=== PATIENT | male | born 1990 | race Two or more races ===

== ENCOUNTER 2025-05-29 19:54 | Inpatient (IN) | payer OTHER ==
[~2025-05-29] VITALS: Ht 160 cm; Wt 64.9 kg
[2025-05-30] MEDS ORDERED: RINGERS SOLUTION,LACTATED 1,000 ML IV STA (00:05)
[2025-05-30 03:33] LABS: BASO % 0.5 % (0.1-1.2); EOS # 0.20 (0.04-0.54); EOS % 1.9 % (0.7-7.0); LYMPH # 1.64 (1.18-3.74); LYMPH % 15.5 % (19.3-53.1); MEAN PLATELET VOLUME 9.30 fl (9.4-12.4); MONO # 0.77 (0.24-0.82); MONO % 7.3 % (4.7-12.5); NEUT # 7.90 (1.56-6.13); NEUT % 74.5 % (34.0-71.1); RED CELL DISTRIBUTION WIDTH 14.0 % (11.6-14.4)
[2025-05-30 03:53] LABS: INR 1.1
[2025-05-30 03:57] LABS: ALT/SGPT 417.0 U/L (12-78); AST/SGOT 159.0 U/L (15-37); BILIRUBIN TOTAL 2.7 mg/dL (0.3-1.2); BUN CREA RATIO 18.0 (7.0-25.0); CREATININE SERUM 0.95 mg/dL (0.70-1.30); GFR 91.87; GLOBULINA 3.5 G/DL (2.4-3.5); GLUCOSE FASTING 73.0 mg/dL (65-100); OSMOLALITY SERUM 280.0 MOSM/KG (275-295)
[2025-05-30 04:13] LABS: BILIRUBIN,CONJUGATED 0.65 mg/dL (0.0-0.2)
[2025-05-30] MEDS ORDERED: PIPERACILLIN/TAZOBACTAM SODIUM 3.375 GM in DEXTROSE 5 % IN WATER 100 ML IV SCH (06:00)
[2025-05-30 08:08] LABS: URINE APPEARANCE Clear; URINE BILIRRUBIN Small (NEGATIVE); URINE BLOOD Small; URINE COLOR Dark Yellow; URINE GLUCOSE Negative (NEGATIVE); URINE LEUKOCYTE Negative; URINE NITRATE Negative; URINE PROTEIN Trace (NEGATIVE); URINE UROBILINOGEN 1.0 E.U./dl
[2025-05-30 08:10] LABS: URINE BACTERIA 9.5 uL (0.0-1933); URINE EPITHELIAL CELLS 6.4 uL (0.0-38.8); URINE RBC 30.7 uL (0.0-20.8); URINE WBC 3.6 uL (0.0-23.2)
[2025-05-30 08:12] LABS: URINE CAST 0.29 uL (0.0-1.40); URINE KETONE >=160 (NEGATIVE)
[2025-05-30] MEDS ORDERED: ONDANSETRON HCL 4 MG in 0.9 % SODIUM CHLORIDE 50 ML IV PRN (18:00)
[2025-05-30] MEDS ORDERED: ACETAMINOPHEN 500 MG GEL..CAP PO PRN (18:00)
[2025-05-30] MEDS ORDERED: 0.9 % SODIUM CHLORIDE 1,000 ML IV SCH (18:00)
[2025-05-30] MEDS ORDERED: MORPHINE SULFATE 4 MG/ML CARTRIDGE IV PRN (18:15)
[2025-05-30 21:44] LABS: COVID-19 AG NEGATIVE (NEGATIVE)
[2025-05-30 21:45] VITALS: BP 120/70; O2SAT 97
[2025-05-31 01:56] VITALS: BP 103/64; O2SAT 98
[2025-05-31 08:00] VITALS: BP 110/68; O2SAT 99
[2025-05-31] MEDS ORDERED: FAMOTIDINE/PF 20 MG in 0.9 % SODIUM CHLORIDE 8 ML IV PUSH SCH (09:00)
[2025-05-31 17:53] VITALS: BP 135/86
[2025-05-31 19:28] LABS: ALT/SGPT 225.0 U/L (12-78); AST/SGOT 62.0 U/L (15-37); BILIRUBIN TOTAL 1.71 mg/dL (0.3-1.2); BILIRUBIN,CONJUGATED 0.64 mg/dL (0.0-0.2); BUN CREA RATIO 8.0 (7.0-25.0); CREATININE SERUM 0.77 mg/dL (0.70-1.30); GFR 117.08; GLOBULINA 3.5 G/DL (2.4-3.5); GLUCOSE FASTING 61.0 mg/dL (65-100); OSMOLALITY SERUM 271.0 MOSM/KG (275-295)
[2025-06-01 02:04] VITALS: BP 97/68; O2SAT 97
[2025-06-01 09:02] VITALS: BP 103/55; O2SAT 98
[2025-06-01] MEDS ORDERED: BUPIVACAINE HCL/MPF 0.5% 30ML VIAL ONE (10:56)
[2025-06-01] MEDS ORDERED: LIDOCAINE HCL 1%/EPINEPHRINE 20ML VIAL IJ ONE (10:56)
[2025-06-01] MEDS ORDERED: SUGAMMADEX SODIUM 200 MG/2 ML VIAL IV ONE (12:54)
[2025-06-01] MEDS ORDERED: MORPHINE SULFATE 4 MG/ML VIAL IV ONE (13:10)
[2025-06-01] MEDS ORDERED: PIPERACILLIN/TAZOBACTAM SODIUM 3.375 GM VIAL IV ONE (15:53)
[2025-06-01 18:46] VITALS: BP 142/92; O2SAT 97
[2025-06-01] MEDS ORDERED: MORPHINE SULFATE 4 MG/ML CARTRIDGE IV SCH (20:46)
[2025-06-02 03:14] VITALS: BP 123/76; O2SAT 97
[2025-06-02 09:11] VITALS: BP 120/72; O2SAT 95
[2025-06-02 16:38] VITALS: BP 134/84
[2025-06-03 02:31] VITALS: BP 122/81; O2SAT 95
[2025-06-03 08:41] VITALS: BP 114/73; O2SAT 96
== END 2025-06-03 15:23 | disposition home or self-care (01) | DRG 417 ==
LOC: ER 19:54 → MEDI 05-30 18:10
PROVIDERS: General Practice; Specialist; ADMIT Internal Medicine; ATTEND Internal Medicine
PROC: BW40ZZZ Ultrasonography of Abdomen (ICD-10-PCS; 2025-05-30)
PROC: BF37ZZZ Magnetic Resonance Imaging (MRI) of Pancreas (ICD-10-PCS; 2025-05-30)
PROC: 0FT44ZZ Resection of Gallbladder, Percutaneous Endoscopic Approach (ICD-10-PCS; principal; 2025-06-01 14:30)
DX: K81.0 Acute cholecystitis (principal); K85.10 Biliary acute pancreatitis without necrosis or infection

== ENCOUNTER 2025-08-28 20:18 | Emergency (ER) | payer OTHER ==
[~2025-08-28] VITALS: Ht 162.6 cm; Wt 69.9 kg
[2025-08-28 23:20] LABS: BASO % 0.2 % (0.1-1.2); EOS # 0.03 (0.04-0.54); EOS % 0.2 % (0.7-7.0); LYMPH # 1.10 (1.18-3.74); LYMPH % 7.3 % (19.3-53.1); MEAN PLATELET VOLUME 9.50 fl (9.4-12.4); MONO # 0.88 (0.24-0.82); MONO % 5.8 % (4.7-12.5); NEUT # 12.95 (1.56-6.13); NEUT % 86.0 % (34.0-71.1); RED CELL DISTRIBUTION WIDTH 13.5 % (11.6-14.4)
[2025-08-28 23:27] LABS: URINE APPEARANCE Clear; URINE BILIRRUBIN Small (NEGATIVE); URINE BLOOD Large; URINE COLOR Orange; URINE GLUCOSE Negative (NEGATIVE); URINE KETONE Trace (NEGATIVE); URINE LEUKOCYTE Trace; URINE NITRATE Negative; URINE UROBILINOGEN 1.0 E.U./dl
[2025-08-28 23:28] LABS: URINE BACTERIA 10.7 uL (0.0-1933); URINE EPITHELIAL CELLS 5.8 uL (0.0-38.8); URINE RBC 165.5 uL (0.0-20.8); URINE WBC 4.3 uL (0.0-23.2)
[2025-08-28 23:31] LABS: ALT/SGPT 153.0 U/L (12-78); AST/SGOT 159.0 U/L (15-37); BILIRUBIN TOTAL 1.47 mg/dL (0.3-1.2); BUN CREA RATIO 13.0 (7.0-25.0); CREATININE SERUM 1.21 mg/dL (0.70-1.30); GFR 69.49; GLOBULINA 4.5 G/DL (2.4-3.5); GLUCOSE FASTING 107.0 mg/dL (65-100); OSMOLALITY SERUM 275.0 MOSM/KG (275-295)
[2025-08-28 23:42] LABS: URINE CAST 0.43 uL (0.0-1.40); URINE PROTEIN 100 (NEGATIVE)
[2025-08-29] MEDS ORDERED: FAMOTIDINE/PF 20 MG/2 ML VIAL IV STA (00:14)
[2025-08-29] MEDS ORDERED: CEFTRIAXONE SODIUM 2,000 MG VIAL IV STA (00:14)
[2025-08-29] MEDS ORDERED: TAMSULOSIN HCL 0.4 MG CAP PO STA (00:15)
[2025-08-29] MEDS ORDERED: ONDANSETRON HCL 2 MG/ML VIAL IV ONE (00:15)
[2025-08-29] MEDS ORDERED: 0.9 % SODIUM CHLORIDE 1,000 ML IV SCH (00:15)
[2025-08-29] MEDS ORDERED: TAMSULOSIN HCL 0.4 MG CAP PO ONE (00:51)
[2025-08-29] MEDS ORDERED: ONDANSETRON HCL 2 MG/ML VIAL ONE (00:51)
[2025-08-29] MEDS ORDERED: CEFTRIAXONE SODIUM 2,000 MG VIAL ONE (00:52)
[2025-08-29] MEDS ORDERED: FAMOTIDINE/PF 20 MG/2 ML VIAL ONE (00:52)
[2025-08-29] MEDS ORDERED: CEPHALEXIN500 MG PO (04:38)
[2025-08-29] MEDS ORDERED: KETO10TA2 PO (04:38)
== END 2025-08-29 04:56 ==
LOC: ER 20:18
PROVIDERS: General Practice; Physician Assistant Medical
DX: R31.9 Hematuria, unspecified (principal)

== ENCOUNTER 2025-08-30 09:44 | Emergency (ER) | payer OTHER ==
[~2025-08-30] VITALS: Ht 162.6 cm; Wt 69.4 kg
[~2025-08-30 09:44] MED LIST: CEPHALEXIN500 MG PO; KETO10TA2 PO
[2025-08-30] MEDS ORDERED: 0.9 % SODIUM CHLORIDE 1,000 ML IV ONE (10:15)
[2025-08-30] MEDS ORDERED: FAMOTIDINE/PF 20 MG/2 ML VIAL IV ONE (10:15)
[2025-08-30] MEDS ORDERED: ONDANSETRON HCL 2 MG/ML VIAL IV ONE (10:15)
[2025-08-30] MEDS ORDERED: FAMOTIDINE/PF 20 MG/2 ML VIAL ONE (10:25)
[2025-08-30] MEDS ORDERED: ONDANSETRON HCL 2 MG/ML VIAL ONE (10:25)
[2025-08-30 11:11] LABS: BASO % 0.3 % (0.1-1.2); EOS # 0.01 (0.04-0.54); EOS % 0.1 % (0.7-7.0); LYMPH # 1.31 (1.18-3.74); LYMPH % 8.3 % (19.3-53.1); MEAN PLATELET VOLUME 9.20 fl (9.4-12.4); MONO # 1.03 (0.24-0.82); MONO % 6.6 % (4.7-12.5); NEUT # 13.19 (1.56-6.13); NEUT % 83.9 % (34.0-71.1); RED CELL DISTRIBUTION WIDTH 13.2 % (11.6-14.4)
[2025-08-30 11:51] LABS: URINE APPEARANCE Clear; URINE BILIRRUBIN Moderate (NEGATIVE); URINE BLOOD Large; URINE COLOR Dark Yellow; URINE GLUCOSE Negative (NEGATIVE); URINE LEUKOCYTE Trace; URINE NITRATE Negative; URINE UROBILINOGEN 1.0 E.U./dl
[2025-08-30 11:54] LABS: URINE BACTERIA 7.1 uL (0.0-1933); URINE EPITHELIAL CELLS 8.1 uL (0.0-38.8); URINE RBC 335.1 uL (0.0-20.8); URINE WBC 6.7 uL (0.0-23.2)
[2025-08-30 11:55] LABS: ALT/SGPT 226.0 U/L (12-78); AST/SGOT 211.0 U/L (15-37); BILIRUBIN TOTAL 2.33 mg/dL (0.3-1.2); BUN CREA RATIO 11.0 (7.0-25.0); CREATININE SERUM 0.99 mg/dL (0.70-1.30); GFR 87.6; GLOBULINA 5.2 G/DL (2.4-3.5); GLUCOSE FASTING 89.0 mg/dL (65-100); OSMOLALITY SERUM 273.0 MOSM/KG (275-295)
[2025-08-30 12:05] LABS: URINE CAST 0.87 uL (0.0-1.40); URINE KETONE >=160 (NEGATIVE); URINE PROTEIN 100 (NEGATIVE)
[2025-08-30 15:42] LABS: BILIRUBIN TOTAL 2.28 mg/dL (0.3-1.2); BILIRUBIN,CONJUGATED 1.14 mg/dL (0.0-0.2)
== END 2025-08-30 17:24 | disposition home or self-care (01) ==
LOC: ER 09:45
PROVIDERS: Emergency Medicine
DX: R11.10 Vomiting, unspecified (principal)

== ENCOUNTER 2025-09-07 10:10 | Outpatient (CLI) | payer OTHER | END 2025-09-07 10:18 | disposition home or self-care (01) | LOC: MRI 10:10 | DX: K80.61 Calculus of gallbladder and bile duct with cholecystitis, unspecified, with obstruction (principal) | CPT/HCPCS: 74181; 74183 ==

== ENCOUNTER 2025-09-13 21:10 | Inpatient (IN) | payer OTHER ==
[~2025-09-13] VITALS: Ht 162.6 cm; Wt 65.3 kg
[2025-09-13] MEDS ORDERED: ZOFRAN8 MG (23:00)
[2025-09-13] MEDS ORDERED: PEPCID AC20 MG (23:00)
[2025-09-13] MEDS ORDERED: CEPHALEXIN500 MG (23:00)
[2025-09-13] MEDS ORDERED: LEVOFLOXACIN750 MG (23:01)
--- NOTE | 2025-09-13 23:07 | NUR ---
SE RECIBE PACIENTE ALERTA Y ORIENTADO X 3 ESFERAS EL CUAL INDICA QUE LLEVA 3 SEMANAS CON FIEBRE, DOLOR DE CUERPO, GARGANTA Y CUERPO. PACIENTE INDICA QUE GREGORIO ESTADO BAJO TRATAMIENTO MEDICO MICHELLE NO GREGORIO MYRIAM. INDICA QUE LOS WBC CONTINUAN ELEVADOS.
[2025-09-14] MEDS ORDERED: KETOROLAC TROMETHAMINE 30 MG VIAL IV STA (01:20)
[2025-09-14] MEDS ORDERED: 0.9 % SODIUM CHLORIDE 1,000 ML IV ONE (01:30)
[2025-09-14 03:12] LABS: BASO % 0.3 % (0.1-1.2); EOS # 0.11 (0.04-0.54); EOS % 0.7 % (0.7-7.0); LYMPH # 2.16 (1.18-3.74); LYMPH % 13.2 % (19.3-53.1); MEAN PLATELET VOLUME 8.60 fl (9.4-12.4); MONO # 0.71 (0.24-0.82); MONO % 4.3 % (4.7-12.5); NEUT # 13.27 (1.56-6.13); NEUT % 80.8 % (34.0-71.1); RED CELL DISTRIBUTION WIDTH 13.4 % (11.6-14.4)
--- NOTE | 2025-09-14 03:22 | NUR ---
RN.ARIZU ORIENTA A PTE SOBRE TX MEDICO ORDENADO POR . REALIZA TAYLOR DE MUESTRAS DE LAB S[place] ORDEN MEDICA Y BAJO MEDIDAS ASEPTICAS. VENOPUNCION PATENTE CARLOTTA DE EDEMA Y ERITEMA BAJANDO IV FLUIDS POR REGULADOR. PTE PENDIENTE A RESULTADOS DE LAB.
[2025-09-14 03:23] LABS: INR 1.11
[2025-09-14 03:28] LABS: ALT/SGPT 363.0 U/L (12-78); AST/SGOT 180.0 U/L (15-37); BILIRUBIN TOTAL 0.48 mg/dL (0.3-1.2); BILIRUBIN,CONJUGATED 0.32 mg/dL (0.0-0.2); BUN CREA RATIO 9.0 (7.0-25.0); CREATININE SERUM 0.89 mg/dL (0.70-1.30); GFR 99.06; GLOBULINA 5.4 G/DL (2.4-3.5); GLUCOSE FASTING 105.0 mg/dL (65-100); OSMOLALITY SERUM 280.0 MOSM/KG (275-295)
[2025-09-14] MEDS ORDERED: MEROPENEM 1,000 MG VIAL IV STA (06:39)
--- NOTE | 2025-09-14 08:10 | NUR ---
SE RECIBE PACIENTE ALERTA Y ORIENTADO X3. EL MISMO EN [place]CANSO EN CAMA CON LA CABECERA 45 GRADOS Y BARANDAS ELEVADAS. EL MISMO CON CANALIZACION # 18 EN BRAZO STEPAN PATENTE Y CARLOTTA DE DOLOR BAJANDO CON UN 0.9NSS @ 175ML/HR. CONSULTA CON DR. ENRIKE VORA POR SEPSIS PENDIENTE A ENTREGA DE U/A Y U/C.
[2025-09-14 08:36] LABS: URINE APPEARANCE Cloudy; URINE BILIRRUBIN Negative (NEGATIVE); URINE BLOOD Small; URINE COLOR Dark Yellow; URINE GLUCOSE Negative (NEGATIVE); URINE KETONE Negative (NEGATIVE); URINE LEUKOCYTE Negative; URINE NITRATE Negative; URINE PROTEIN Trace (NEGATIVE); URINE UROBILINOGEN 0.2 E.U./dl
[2025-09-14 08:38] LABS: URINE BACTERIA 4.8 uL (0.0-1933); URINE EPITHELIAL CELLS 15.8 uL (0.0-38.8); URINE RBC 24.0 uL (0.0-20.8); URINE WBC 12.9 uL (0.0-23.2)
[2025-09-14 08:39] LABS: URINE CAST 0.58 uL (0.0-1.40)
[2025-09-14] MEDS ORDERED: ACETAMINOPHEN 325 MG TABLET PO PRN (14:45)
[2025-09-14] MEDS ORDERED: ONDANSETRON HCL 4 MG in 0.9 % SODIUM CHLORIDE 50 ML IV PRN (14:45)
[2025-09-14] MEDS ORDERED: 0.9 % SODIUM CHLORIDE 1,000 ML IV SCH (14:45)
[2025-09-14] MEDS ORDERED: ACETAMINOPHEN 500 MG GEL..CAP PO PRN (14:45)
[2025-09-14 15:04] VITALS: BP 110/70
[2025-09-14] MEDS ORDERED: PIPERACILLIN/TAZOBACTAM SODIUM 3.375 GM in 0.9 % SODIUM CHLORIDE 100 ML IV SCH (18:00)
[2025-09-15] MEDS ORDERED: PIPERACILLIN/TAZOBACTAM SODIUM 3.375 GM VIAL IV ONE ×3 (00:44→14:13)
[2025-09-15 01:07] VITALS: BP 98/58; O2SAT 99
[2025-09-15 07:52] LABS: COVID-19 AG NEGATIVE (NEGATIVE)
[2025-09-15 07:56] LABS: BASO % 0.6 % (0.1-1.2); EOS # 0.16 (0.04-0.54); EOS % 1.4 % (0.7-7.0); LYMPH # 1.55 (1.18-3.74); LYMPH % 13.4 % (19.3-53.1); MEAN PLATELET VOLUME 8.90 fl (9.4-12.4); MONO # 0.56 (0.24-0.82); MONO % 4.9 % (4.7-12.5); NEUT # 9.09 (1.56-6.13); NEUT % 78.8 % (34.0-71.1); RED CELL DISTRIBUTION WIDTH 13.3 % (11.6-14.4)
[2025-09-15 07:58] LABS: ALT/SGPT 242.0 U/L (12-78); AST/SGOT 75.0 U/L (15-37); BILIRUBIN TOTAL 0.31 mg/dL (0.3-1.2); BILIRUBIN,CONJUGATED 0.24 mg/dL (0.0-0.2); LDH 167.0 U/L (87-241)
[2025-09-15 07:59] VITALS: BP 124/78; O2SAT 98
[2025-09-15 09:01] LABS: ERYTHROCYTE SEDIMENTATION RATE > 130 mm/hr (0-15)
[2025-09-15] MEDS ORDERED: RINGERS SOLUTION,LACTATED 1,000 ML IV SCH (14:30)
[2025-09-15 16:00] VITALS: BP 104/64; O2SAT 99
[2025-09-15 19:34] VITALS: BP 117/72; O2SAT 99
[2025-09-16 02:17] VITALS: BP 95/58; O2SAT 96
[2025-09-16 08:24] VITALS: BP 98/62; O2SAT 100
[2025-09-16 15:31] LABS: BASO % 0.7 % (0.1-1.2); EOS # 0.17 (0.04-0.54); EOS % 1.7 % (0.7-7.0); LYMPH # 2.10 (1.18-3.74); LYMPH % 21.6 % (19.3-53.1); MEAN PLATELET VOLUME 8.70 fl (9.4-12.4); MONO # 0.56 (0.24-0.82); MONO % 5.8 % (4.7-12.5); NEUT # 6.75 (1.56-6.13); NEUT % 69.4 % (34.0-71.1); RED CELL DISTRIBUTION WIDTH 13.4 % (11.6-14.4)
[2025-09-16 15:39] LABS: INR 1.08
[2025-09-16 15:47] LABS: ALT/SGPT 187.0 U/L (12-78); AST/SGOT 59.0 U/L (15-37); BILIRUBIN TOTAL 0.38 mg/dL (0.3-1.2); BUN CREA RATIO 7.0 (7.0-25.0); CREATININE SERUM 0.85 mg/dL (0.70-1.30); GFR 104.46; GLOBULINA 4.6 G/DL (2.4-3.5); GLUCOSE FASTING 103.0 mg/dL (65-100); OSMOLALITY SERUM 285.0 MOSM/KG (275-295)
[2025-09-16 16:26] VITALS: BP 111/73; O2SAT 96
[2025-09-17 02:49] VITALS: BP 95/61
[2025-09-17 09:49] VITALS: BP 100/65; O2SAT 98
[2025-09-17] MEDS ORDERED: PIPERACILLIN/TAZOBACTAM SODIUM 3.375 GM VIAL IV ONE (12:07)
[2025-09-17 16:13] LABS: FE 33.0 ug/dl (65-175)
[2025-09-17 16:40] VITALS: BP 112/70; O2SAT 98
[2025-09-18 00:47] VITALS: BP 101/59; O2SAT 97
[2025-09-18] MEDS ORDERED: METHYLPREDNISOLONE SOD SUCC 40 MG VIAL IV STA (07:20)
[2025-09-18 08:49] VITALS: BP 101/68
[2025-09-18] MEDS ORDERED: AMINO ACIDS/PROTEIN HYDROLYS 30 ML BLIST.PACK PO SCH (09:00)
[2025-09-18 12:04] LABS: FOLIC ACID 7.16 ng/ml (4.78-20)
[2025-09-18] MEDS ORDERED: PROTEINEX-18 LI30 ML PO (12:50)
[2025-09-18] MEDS ORDERED: AMOX1TAB5 PO (12:50)
[2025-09-18] MEDS ORDERED: PROTONIX40 MG PO (12:50)
[2025-09-18] MEDS ORDERED: PREDNISONE20 MG PO (12:50)
[2025-09-19 08:10] LABS: HEPATITIS B SURFACE ANTIBODY Non Reactive (.)
[2025-09-19] MEDS ORDERED: PREDNISONE 20 MG TABLET PO SCH (09:00)
[2025-09-19 14:07] LABS: ANTI JO 1 < 0.2 AI (0.0-0.9); ANTI-CENTROMERE AB <0.2 AI (0.0-0.9); DNA AB DOUBLE STRABDED 1 IU/mL (0-9)
[2025-09-19 16:11] LABS: ANTI CARDIO IGM 15 MPL U/mL (0-12); CYCLIC CITRULLINE PEPTIDE 8 units (0-19)
[2025-09-21 18:07] LABS: ANTI MITOCHONDRIAL ANTIBODIES < 20.0 Units (0.0-20.0); SMOOTH MUSCLE ANTIBODY 5 Units (0-19); anti MPO AB < 0.2 units (0.0-0.9); anti pr3 < 0.2 units (0.0-0.9)
== END 2025-09-18 14:11 | disposition home or self-care (01) | DRG 816 ==
LOC: ER 21:11 → SEC-K 09-14 14:33 → MEDI 09-14 16:12 → SEC-K 09-14 17:14 → MEDI 09-15 15:56
PROVIDERS: General Practice; ADMIT Internal Medicine; ATTEND Internal Medicine
PROC: BW40ZZZ Ultrasonography of Abdomen (ICD-10-PCS; principal; 2025-09-14)
PROC: BB24ZZZ Computerized Tomography (CT Scan) of Bilateral Lungs (ICD-10-PCS; 2025-09-14)
PROC: BW21ZZZ Computerized Tomography (CT Scan) of Abdomen and Pelvis (ICD-10-PCS; 2025-09-14)
DX: D75.838 Other thrombocytosis (principal); D72.829 Elevated white blood cell count, unspecified; R50.9 Fever, unspecified; D64.9 Anemia, unspecified; R74.01 Elevation of levels of liver transaminase levels; F17.200 Nicotine dependence, unspecified, uncomplicated